=== PATIENT | male | born 1980 | race Native Hawaiian/Other Pacific Islander ===

== ENCOUNTER → 2016-07-05 | Outpatient (CLI) | payer BC ==
[2016-07-05 09:36] LABS: URINE APPEARANCE CLEAR (CLEAR); URINE BILIRUBIN NEG (NEG); URINE COLOR YELLOW; URINE EPITHELIAL CELL AUTO 0-5 /lpf (0-5); URINE NITRITE NEG (NEG); URINE SPECIFIC GRAVITY 1.007 (1.000-1.030); UROBILINOGEN NEG (NEG); ZZUR CULT IF INDIC CLEAN CATCH NO
[2016-07-05 09:38] LABS: MANUAL MICROSCOPIC REQUIRED? NO; REVIEW REQ? NO
[2016-07-05 09:47] LABS: BLOOD UREA NITROGEN 33 mg/dl (7-18); BUN/CREATININE RATIO 18.2 (10-20); CALCIUM 9.7 mg/dl (8.5-10.1); CARBON DIOXIDE 25 mmol/L (21-32); CHLORIDE 103 mmol/L (98-107); CHOLESTEROL 221 mg/dl (0-200); GLUCOSE 111 mg/dl (70-99); MAGNESIUM 2.3 mg/dl (1.8-2.4); POTASSIUM 3.5 mmol/L (3.5-5.1); SODIUM 141 mmol/L (136-145); TRIGLYCERIDES 342 mg/dl (0-150); URIC ACID 8.4 mg/dl (2.6-7.2); VERY LOW DENSITY LIPOPROT CALC 68 mg/dl
[2016-07-05 09:51] LABS: CHOLESTEROL/HDL RATIO 7.1; HDL CHOLESTEROL 31 mg/dl; LDL CHOLESTEROL CALCULATED 122 mg/dl; PHOSPHORUS 2.7 mg/dl (2.5-4.9)
[2016-07-05 10:04] LABS: URINE PROTIEN/CREAT RATIO 0.1 (0-0.2); URINE TOTAL PROTEIN 11.4 mg/dl (0-11.9)
== END | disposition home or self-care (01) ==
LOC: C.LAB1850 08:11
PROVIDERS: ATTEND Internal Medicine Nephrology
DX: N18.3 Chronic kidney disease, stage 3 (moderate) (principal); M10.9 Gout, unspecified; Z13.220 Encounter for screening for lipoid disorders